=== PATIENT | female | born 1980 | race African-American/Black ===

== ENCOUNTER 2017-12-15 14:42 | Emergency (ER) | payer BC, OTHER ==
[2017-12-15 15:55] LABS: Bilirubin Small (Negative); Blood, Urine Negative (Negative); Clarity Clear (Clear); Glucose, Urine (Dipstick) Negative (Negative); Leukocyte Negative (Negative); Nitrite Negative (Negative); Protein, Urine (Dipstick) 100 mg/dL (Neg-Trace); Specific Gravity, Urine 1.032 (1.002-1.036)
[2017-12-15 15:56] LABS: Pregnancy Test - Urine (BHCG) Negative (Negative); Pregu Control Background? CLEAR/WHITE (CLR/WHITE); Pregu Control Bar Appear? YES (CONTROL BAR); Specific Gravity 1.032 (1.002-1.036)
[2017-12-15] MEDS ORDERED: HYDROcodone/Acetaminophen 10/325 mg Tablet ONE (15:58)
[2017-12-15] MEDS ORDERED: Ibuprofen 800 MG TAB ONE (15:58)
[2017-12-15 16:06] LABS: Bacteria/HPF 1+ HPF (None Seen); RBC/HPF 0-3 HPF (0-3); WBC/HPF 0-3 HPF (0-3)
[2017-12-15] MEDS ORDERED: Sulfameth/Trimethoprim DS 800-160mg TAB ONE (16:27)
--- NOTE | 2017-12-15 16:45 | CT ---
CT ABDOMEN AND PELVIS NONCONTRAST: HISTORY: Right flank pain. FINDINGS: Each renal collecting system, ureter, and urinary bladder are decompressed without a stone evident. Lack of contrast limits evaluation for other abnormalities. No evidence of bowel obstruction. IMPRESSION: No CT evidence of urinary tract obstruction or calcification. POS: [facility]
== END 2017-12-15 16:32 | disposition home or self-care (01) ==
LOC: MADERS 14:42
DX: N39.0 Urinary tract infection, site not specified (principal)
CPT/HCPCS: 74176; 81003; 81015; 81025